=== PATIENT | female | born 1995 | race Caucasian/White ===

== ENCOUNTER 2016-09-11 04:20 | Inpatient (IN) | payer OTHER ==
[~2016-09-11] VITALS: Ht 160 cm; Wt 67.6 kg
[2016-09-11 06:47] LABS: ABSOLUTE BASOPHIL COUNT 0 /CUMM (0.0-0.2); ABSOLUTE EOSINOPHIL COUNT 0.2 /CUMM (0.0-0.7); ABSOLUTE GRANULOCYTE CT 7.9 /CUMM (1.4-6.5); ABSOLUTE LYMPH COUNT 1.7 /CUMM (1.2-3.4); ABSOLUTE MONOCYTE COUNT 0.7 /CUMM (0.10-0.60); BASOPHIL % 0.3 % (0.0-2.0); EOSINOPHIL % 1.7 % (0-5); HEMATOCRIT 34.2 % (37-47); MEAN CORPUSCULAR HGB CONC 32.4 G/DL (33.0-37.0); MEAN CORPUSCULAR VOLUME 86.4 FL (81.0-99.0); MEAN PLATELET VOLUME 8.6 FL (7.4-10.4); PLATELET COUNT 229 /CUMM (130-400); RBC DISTRIBUTION WIDTH 14.3 % (11.5-14.5); RED BLOOD CELL CT 3.96 /CUMM (4.20-5.40); WHITE BLOOD CELL COUNT 10.5 /CUMM (4.8-10.8)
--- NOTE | 2016-09-11 11:45 | History & Physical ---
General Information and HPI MD Statement: I have seen and personally examined JESE CARRANZA and documented this H&P. The patient is a 21 year old female at [39] weeks and [1] days gestation who presented with a chief complaint of [labor]. Source of Information: patient Exam Limitations: no limitations History of Present Illness: 21 year old @ 39+1 weeks presents with labor pain. Initially upon presentation 1cm, after observation, changed cervix to 3cm and was admitted. 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 EENTM: Reports: no symptoms. Cardiovascular: Reports: no symptoms. Respiratory: Reports: no symptoms. GI: Reports: no symptoms. Genitourinary: Reports: no symptoms. Musculoskeletal: Reports: no symptoms. Skin: Reports: no symptoms. Neurological/Psychological: Reports: no symptoms. Hematologic/Endocrine: Reports: no symptoms. Immunologic/Allergic: Reports: no symptoms. All Other Systems: Reviewed and Negative Exam & Diagnostic Data Last 24 Hrs of Vital Signs/I&O Intake & Output 09/11 1600 02 0800 09/11 0000 Intake Total Output Total Balance Patient 149 lb Weight Obstetric Exam Wgt Gained During : 25 Pelvimetry: n/a Dilation (cm): 3 Effacement (%): 80 Station: -1 Membranes: intact Fluid: unknown Fundal Height (cm): 39 Multiple Gestation? No Contractions: q2-3 #1 - FHR Baseline: 130 Category: 1 Estimated Weight: 7lbs Presentation: vtx Patient for Induction? No Physical Exam General Appearance Alert, Oriented X3, Cooperative, No Acute Distress Skin No Rashes, No Breakdown, No Significant Lesion Cardiovascular Regular Rate, Normal S1, Normal S2 Lungs Clear to Auscultation Abdomen Normal Bowel Sounds, Soft, No Tenderness, gravid Neurological Normal Gait, Normal Speech, Strength at 5/5 X4 Ext, Normal Tone, Sensation Intact Reproductive (FEMALE) Normal female genitalia Labs Blood Type & Rh: A pos Antibody Screen: neg Hct/Hgb & Platelets #1: 13.4 42.4 200 Hct/Hgb & Platelets #2: 11.5 36.7 218 Rubella: NonImmune VDRL #1: neg VDRL #2: neg HbsAg: neg HIV #1: neg HIV #2 neg 1 Hr P Group B Strep: neg Initial Ultrasound: 10w Anatomy Ultrasound: 20 w, choroid plexus cyst (nl Josue 21), marginal cord insertion, bilateral mild puyelectasis, referred to [facility] where Pt followed for 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 Ultrasound for EFW: 35w 56%, 5'6", dysplastic appearing left kidney Genetic Testing: neg CF, hgb elec neg, neg MSAFP Last 24 Hrs of Labs/Ankur: Laboratory Tests 09/11/16 0610: CBC w Diff NO MAN DIFF REQ, RBC 3.96 L, MCV 86.4, MCH 28.0, RDW 14.3, MPV 8.6, Gran % 75.0, Lymphocytes % 16.3 L, Monocytes % 6.7, Eosinophils % 1.7, Basophils % 0.3, Absolute Granulocytes 7.9 H, Absolute Lymphocytes 1.7, Absolute Monocytes 0.7 H, Absolute Eosinophils 0.2, Absolute Basophils 0, PUBS MCHC 32.4 L, Urine Color YEL, Urine Clarity HAZY H, Urine pH 7.0, Ur Specific [place] 1.020, Urine Protein NEG, Urine Ketones NEG, Urine Nitrite NEG, Urine Bilirubin NEG, Urine Urobilinogen 0.2, Ur Leukocyte Esterase TRACE H, Ur Microscopic SEDIMENT EXAMINED, Urine RBC 1-3, Urine WBC 3-5 H, Ur Epithelial Cells MANY H, Urine Hemoglobin LARGE H, Urine Glucose NEG Assessment/Plan Assessment/Plan: 21 year old female @39+1 active labor. 3cm upon admission. pt found to be 6 cm later in the am and received her epidural. pt examined at 11 am and found to be anterior lip/0 station. FHR reassuring. Anticipate . will need rubivax and pedi/uro consult. As Ranked By This Provider Problem List: 1. Core Measures/Miscellaneous Toney Catheter Date In: 09/11/16 Venous Thromboembolism VTE Risk Factors: / VTE Contraindications: No Contraindications VTE Prophylaxis Ordered Inpt: Early Ambulation VTE Diagnosis: No Beta Nupur Is Beta Nupur a Home Med? No Antibiotics Is Patient on Antibiotics? No Attending MD Review Statement Attending Statement Attending MD Statement: examined this patient, discussed with family, discussed w/nursing
--- NOTE | 2016-09-11 13:14 | PN- OBGYN ---
Surgical Brief Attending Note Brief Attending Note: pt fully and laboring down. FHR tracing reassuring
--- NOTE | 2016-09-11 17:36 | Labor & Delivery Summary ---
Delivery Summary Vaginal Delivery: Vaginal: vertex Episiotomy/Lacerations: Episiotomy/Lacerations: 1ST Repair: 3-0 POLYSORB Anesthesia: EPIDURAL AND LOCAL Placenta: Placenta: spontanteous, abnormal, MARGINAL INSERTION, POSSIBLE VELAMENTOUS. Anesthesia: block Apgars - 1 Min: 9 Apgars - 5 Min: 9 Additional Comments: PT PROGRESSED FROM FULLY DILATED around 1218, after unsuccessful trial of pushing, she labored down. Pt reattempted to push around 1307. Epidural was turned off at 1324 due to ineffective pushing. Pt made small improvement in station with pushing. I suspected asynclitism or occiput posterior. Attempts made to push on side and hands and knees. Pt very uncomfortable and requesting to take a break. Epidural turned back on and bolus ordered. Pt had a temperature of 101.2 for which ofirmev was ordered. She labored down until approximately 1515 and expressed desire to start pushing again. Pt pushed for an hour and expressed that was becoming exhausted. FHR 150-170s. Temperature was still elevated and ampicillin x 1 ordered as she appeared to be remote from delivery. Pt requested "help". Fetus was at +3 station. Patient and family counseled on risks , benefits, alternatives of vacuum assisted delvery and verbal consent obtained. Two pulls performed , approximately 30 seconds each with minimal change in station. Patient informed that I would rather she continue to push on her own. Vacuum reapplied at +4 station x 30 seconds and fetus delivered head without complications. Shoulders and infant delivered with complications. Good cry noted. Infant dried and stimulated. bulb suctioned. Cord clamped and cut and infant placed on warmer for further evaluation per pt request. Placenta delivered and was noted to have a marginal insertion, possible velamentous insertion and was sent for pathological studies. Additionally, first degree lac repaired without complications. patient tolerated procedures well.
[2016-09-12 00:21] VITALS: BP 120/70
[2016-09-12 08:17] LABS: ABSOLUTE BASOPHIL COUNT 0 /CUMM (0.0-0.2); ABSOLUTE EOSINOPHIL COUNT 0.1 /CUMM (0.0-0.7); ABSOLUTE GRANULOCYTE CT 9.9 /CUMM (1.4-6.5); ABSOLUTE LYMPH COUNT 1.3 /CUMM (1.2-3.4); ABSOLUTE MONOCYTE COUNT 0.7 /CUMM (0.10-0.60); BASOPHIL % 0.4 % (0.0-2.0); EOSINOPHIL % 0.7 % (0-5); GRANULOCYTE % 82.2 % (42.2-75.2); MEAN CORPUSCULAR HGB 28.3 PG (27.0-31.0); MEAN CORPUSCULAR HGB CONC 32.6 G/DL (33.0-37.0); MEAN CORPUSCULAR VOLUME 86.7 FL (81.0-99.0); MEAN PLATELET VOLUME 8.7 FL (7.4-10.4); PLATELET COUNT 173 /CUMM (130-400); RBC DISTRIBUTION WIDTH 14.6 % (11.5-14.5); RED BLOOD CELL CT 3.23 /CUMM (4.20-5.40); WHITE BLOOD CELL COUNT 12.1 /CUMM (4.8-10.8)
--- NOTE | 2016-09-12 11:16 | PN- OBGYN ---
Surgical Brief Attending Note Brief Attending Note: Doing well. No complaints. Ambulating, voiding, tolerating pain and po. Appropriate lochia. Pumping VSSAF FF@ U-1 Ext no calf tenderness or edema Laboratory Tests 09/12/16 0645: CBC w Diff NO MAN DIFF REQ, RBC 3.23 L, MCV 86.7, MCH 28.3, RDW 14.6 H, MPV 8.7, Gran % 82.2 H, Lymphocytes % 11.1 L, Monocytes % 5.6, Eosinophils % 0.7, Basophils % 0.4, Absolute Granulocytes 9.9 H, Absolute Lymphocytes 1.3, Absolute Monocytes 0.7 H, Absolute Eosinophils 0.1, Absolute Basophils 0, PUBS MCHC 32.6 L 09/11/16 0610: CBC w Diff NO MAN DIFF REQ, RBC 3.96 L, MCV 86.4, MCH 28.0, RDW 14.3, MPV 8.6, Gran % 75.0, Lymphocytes % 16.3 L, Monocytes % 6.7, Eosinophils % 1.7, Basophils % 0.3, Absolute Granulocytes 7.9 H, Absolute Lymphocytes 1.7, Absolute Monocytes 0.7 H, Absolute Eosinophils 0.2, Absolute Basophils 0, PUBS MCHC 32.4 L, Urine Color YEL, Urine Clarity HAZY H, Urine pH 7.0, Ur Specific [place] 1.020, Urine Protein NEG, Urine Ketones NEG, Urine Nitrite NEG, Urine Bilirubin NEG, Urine Urobilinogen 0.2, Ur Leukocyte Esterase TRACE H, Ur Microscopic SEDIMENT EXAMINED, Urine RBC 1-3, Urine WBC 3-5 H, Ur Epithelial Cells MANY H, Urine Hemoglobin LARGE H, Urine Glucose NEG a/p PPD1. Doing well. Routine care. Mild anemia. Will replace iron upon discharge. Declines circumcision.
[2016-09-13] MEDS ORDERED: IBUPROFEN800 M1 PO (09:20)
--- NOTE | 2016-09-13 10:38 | PN- OBGYN ---
Surgical Brief Attending Note Brief Attending Note: POD#2 pt is rseting in bed, no complaints. tolerate diet, void without difficulties. PE: VSS CV RRR Lungs CTA B/L Abdomen: soft, nontender, uterus firm, fundus below umbilicus Ext: DCT(-) A/P: 21yo, s/p , POD#2 1. encourage ambualtion and 2. pain management 3. will d/c home, f/u in office in 2wks and 6 wks
== END 2016-09-13 13:30 | DRG 774 ==
LOC: CBCO 04:20 → GNO 06:00
PROVIDERS: ADMIT Obstetrics & Gynecology
PROC: 10D07Z6 Extraction of Products of Conception, Vacuum, Via Natural or Artificial Opening (ICD-10-PCS; principal; 2016-09-11)
PROC: 0HQ9XZZ Repair Perineum Skin, External Approach (ICD-10-PCS; principal; 2016-09-11)
DX: O70.0 First degree perineal laceration during delivery (principal); O75.81 Maternal exhaustion complicating labor and delivery; O75.2 Pyrexia during labor, not elsewhere classified; O43.893 Other placental disorders, third trimester; Z3A.39 39 weeks gestation of pregnancy; Z37.0 Single live birth
CPT/HCPCS: GNOS; 81001; 88307; G0463; J0131; J0290; J0595; J7120